=== PATIENT | female | born 1995 | race Two or more races ===

== ENCOUNTER 2020-06-17 14:25 | Outpatient (REF) | payer OTHER, SELFPAY ==
[2020-06-17 15:01] LABS: MANUAL DIFF FLAG NO
[2020-06-17 15:06] LABS: Basophils Absolute Auto 0.1 X10*3/uL (0.0-0.2); Basophils Percent Auto 0.6 % (0-2); Eosinophils Absolute Auto 0.1 X10*3/uL (0.0-0.4); Eosinophils Percent Auto 1.3 % (0-4); Hematocrit 37.7 % (37-47); Hemoglobin 12.1 g/dl (12.0-16.0); Imm Gran Abs Auto 0.02 X10*3/uL (0.00-0.03); Imm Gran Pct Auto 0.2 % (0.0-0.4); Lymphocytes Absolute Auto 2.5 X10*3/uL (1.2-4.9); Lymphocytes Percent Auto 26.2 % (20-40); Mean Corpuscular HGB Conc 32.1 g/dl (31.0-35.0); Mean Corpuscular Hemoglobin 28.5 pg (27.0-33.0); Mean Corpuscular Volume 88.9 fL (80-98); Mean Platelet Volume 9.8 fL (9.4-12.3); Monocytes Absolute Auto 0.7 X10*3/uL (0.1-1.2); Monocytes Percent Auto 7.9 % (2-11); Neutrophils Percent Auto 63.8 % (45-73); Platelet Count 338 X10*3/uL (160-400); Red Blood Count 4.24 X10*6/uL (4.20-5.50); Red Cell Distribution Width 13.2 % (11.0-16.0); White Blood Count 9.4 X10*3/uL (4.8-10.8)
[2020-06-17 15:47] LABS: Alanine Aminotransferase 27 U/L (0-31); Albumin Level 4.5 g/dL (3.5-5.0); Alkaline Phosphatase 85 U/L (39-117); Anion Gap 11 (12-20); Aspartate Amino Transferase 20 U/L (5-31); Bilirubin Total 0.5 mg/dL (0.0-1.0); Blood Urea Nitrogen 10 mg/dL (9-16); Calcium 9.1 mg/dL (8.4-10.2); Carbon Dioxide 27 mmol/L (22-29); Chloride 105 mmol/L (96-108); Cholesterol 156 mg/dL; Estimated Glomerular Filt Rate > 60; Glucose Random 79 mg/dL (60-115); HDL Cholesterol 40 mg/dL; LDL Cholesterol Calculated 105 mg/dl; Potassium 4.1 mmol/l (3.3-5.1); Sodium 139 mmol/L (135-145); Total Protein 7.3 g/dL (6.5-8.0); Triglycerides 55 mg/dL
== END 2020-06-17 14:26 | disposition home or self-care (01) ==
LOC: HO.LAB 14:25
PROVIDERS: PCP Internal Medicine; Visit Provider Internal Medicine
DX: Z00.00 Encounter for general adult medical examination without abnormal findings (principal); K21.9 Gastro-esophageal reflux disease without esophagitis; L70.2 Acne varioliformis
CPT/HCPCS: 36415; 80053; 80061; 85025

== ENCOUNTER 2021-09-30 16:00 | Outpatient (REF) | payer OTHER, SELFPAY ==
[2021-09-30 16:15] LABS: MANUAL DIFF FLAG NO
[2021-09-30 16:56] LABS: Basophils Percent Auto 0.3 % (0-2); Eosinophils Absolute Auto 0.1 X10*3/uL (0.0-0.4); Hemoglobin 11.9 g/dl (12.0-16.0); Imm Gran Abs Auto 0.04 X10*3/uL (0.00-0.03); Imm Gran Pct Auto 0.3 % (0.0-0.4); Lymphocytes Absolute Auto 3.4 X10*3/uL (1.2-4.9); Lymphocytes Percent Auto 28.3 % (20-40); Mean Corpuscular HGB Conc 32.2 g/dl (31.0-35.0); Mean Corpuscular Hemoglobin 28.2 pg (27.0-33.0); Mean Corpuscular Volume 87.7 fL (80.0-98.0); Mean Platelet Volume 10.2 fL (9.4-12.3); Monocytes Absolute Auto 0.8 X10*3/uL (0.1-1.2); Monocytes Percent Auto 6.7 % (2-11); Neutrophils Absolute Auto 7.5 x10*3/uL (2.0-8.3); Neutrophils Percent Auto 63.4 % (45-73); Platelet Count 375 X10*3/uL (160-400); Red Blood Count 4.22 X10*6/uL (4.20-5.50); Red Cell Distribution Width 13.4 % (11.0-16.0); White Blood Count 11.8 X10*3/uL (4.8-10.8)
[2021-09-30 17:24] LABS: Alanine Aminotransferase 28 U/L (0-31); Albumin Level 4.4 g/dL (3.5-5.0); Alkaline Phosphatase 89 U/L (39-117); Anion Gap 12 (12-20); Aspartate Amino Transferase 22 U/L (5-31); Bilirubin Total 0.3 mg/dL (0.0-1.0); Blood Urea Nitrogen 11 mg/dL (9-16); Calcium 9.8 mg/dL (8.4-10.2); Carbon Dioxide 27 mmol/L (22-29); Chloride 104 mmol/L (96-108); Estimated Glomerular Filt Rate > 60; Glucose Random 86 mg/dL (60-115); Sodium 139 mmol/L (135-145); Total Protein 7.5 g/dL (6.5-8.0)
[2021-09-30 17:46] LABS: Thyroid Stimulating Hormone 1.69 uIU/mL (0.32-4.0)
== END 2021-09-30 16:01 | disposition home or self-care (01) ==
LOC: HO.LAB 16:00
PROVIDERS: PCP Internal Medicine; Visit Provider Internal Medicine
DX: L50.8 Other urticaria (principal)
CPT/HCPCS: 36415; 80053; 84443; 85025

== ENCOUNTER 2022-10-16 12:10 | Outpatient (REF) | payer OTHER, SELFPAY ==
[2022-10-16 12:25] LABS: MANUAL DIFF FLAG NO
[2022-10-16 12:50] LABS: Basophils Absolute Auto 0.1 X10*3/uL (0.0-0.2); Basophils Percent Auto 0.8 % (0-2); Eosinophils Absolute Auto 0.3 X10*3/uL (0.0-0.4); Eosinophils Percent Auto 2.7 % (0-4); Hematocrit 39.2 % (37.0-47.0); Hemoglobin 12.8 g/dl (12.0-16.0); Imm Gran Abs Auto 0.02 X10*3/uL (0.00-0.03); Imm Gran Pct Auto 0.2 % (0.0-0.4); Lymphocytes Absolute Auto 3.1 X10*3/uL (1.2-4.9); Lymphocytes Percent Auto 31.9 % (20-40); Mean Corpuscular HGB Conc 32.7 g/dl (31.0-35.0); Mean Corpuscular Hemoglobin 28.2 pg (27.0-33.0); Mean Corpuscular Volume 86.3 fL (80.0-98.0); Monocytes Absolute Auto 0.7 X10*3/uL (0.1-1.2); Neutrophils Absolute Auto 5.5 x10*3/uL (2.0-8.3); Neutrophils Percent Auto 57.4 % (45-73); Platelet Count 345 X10*3/uL (160-400); Red Blood Count 4.54 X10*6/uL (4.20-5.50); Red Cell Distribution Width 13.7 % (11.0-16.0); White Blood Count 9.7 X10*3/uL (4.8-10.8)
[2022-10-16 13:22] LABS: Alanine Aminotransferase 34 U/L (0-31); Albumin Level 4.4 g/dL (3.5-5.0); Alkaline Phosphatase 95 U/L (39-117); Anion Gap 13 (12-20); Aspartate Amino Transferase 21 U/L (5-31); Bilirubin Total 0.6 mg/dL (0.0-1.0); Blood Urea Nitrogen 10 mg/dL (9-16); Calcium 9.4 mg/dL (8.4-10.2); Carbon Dioxide 26 mmol/L (22-29); Chloride 105 mmol/L (96-108); Cholesterol 195 mg/dL; Estimated Glomerular Filt Rate > 60; Glucose Random 77 mg/dL (60-115); HDL Cholesterol 46 mg/dL; LDL Cholesterol Calculated 137 mg/dl; Potassium 4.2 mmol/L (3.3-5.1); Sodium 140 mmol/L (135-145); Total Protein 7.4 g/dL (6.5-8.0); Triglycerides 61 mg/dL
== END 2022-10-16 12:11 | disposition home or self-care (01) ==
LOC: HO.LAB 12:10
PROVIDERS: PCP Internal Medicine; Visit Provider Internal Medicine
DX: J30.89 Other allergic rhinitis (principal); Z86.001 Personal history of in-situ neoplasm of cervix uteri
CPT/HCPCS: 36415; 80053; 80061; 85025

== ENCOUNTER 2024-01-17 07:39 | Outpatient (REF) | payer OTHER, SELFPAY ==
[2024-01-17 11:12] LABS: MANUAL DIFF FLAG NO
[2024-01-17 11:19] LABS: Basophils Absolute Auto 0.1 X10*3/uL (0.0-0.2); Basophils Percent Auto 0.7 % (0-2); Eosinophils Absolute Auto 0.1 X10*3/uL (0.0-0.4); Eosinophils Percent Auto 1.2 % (0-4); Hemoglobin 11.7 g/dl (12.0-16.0); Imm Gran Abs Auto 0.02 X10*3/uL (0.00-0.03); Imm Gran Pct Auto 0.2 % (0.0-0.4); Lymphocytes Absolute Auto 2.7 X10*3/uL (1.2-4.9); Lymphocytes Percent Auto 25.8 % (20-40); Mean Corpuscular HGB Conc 32.5 g/dl (31.0-35.0); Mean Corpuscular Hemoglobin 28.3 pg (27.0-33.0); Mean Platelet Volume 10.2 fL (9.4-12.3); Monocytes Absolute Auto 0.7 X10*3/uL (0.1-1.2); Monocytes Percent Auto 6.9 % (2-11); Neutrophils Absolute Auto 6.9 x10*3/uL (2.0-8.3); Neutrophils Percent Auto 65.2 % (45-73); Platelet Count 353 X10*3/uL (160-400); Red Blood Count 4.14 X10*6/uL (4.20-5.50); Red Cell Distribution Width 14.1 % (11.0-16.0); White Blood Count 10.5 X10*3/uL (4.8-10.8)
[2024-01-17 11:36] LABS: Alanine Aminotransferase 25 U/L (0-31); Albumin Level 4.3 g/dL (3.5-5.0); Alkaline Phosphatase 73 U/L (39-117); Anion Gap 13 (12-20); Aspartate Amino Transferase 17 U/L (5-31); Bilirubin Total 0.4 mg/dL (0.0-1.0); Blood Urea Nitrogen 7 mg/dL (9-16); Calcium 9.3 mg/dL (8.4-10.2); Carbon Dioxide 23 mmol/L (22-29); Chloride 108 mmol/L (96-108); Cholesterol 132 mg/dL (<200); Estimated Glomerular Filt Rate > 60; Glucose Random 82 mg/dL (60-115); HDL Cholesterol 42 mg/dL (>40); LDL Cholesterol Calculated 82 mg/dL (<100); Potassium 3.8 mmol/L (3.3-5.1); Sodium 140 mmol/L (135-145); Total Protein 7.3 g/dL (6.5-8.0); Triglycerides 42 mg/dL (<150)
[2024-01-17 11:47] LABS: HIV AB/AG Nonreactive (Nonreactive); HIV Num 1 0.05 S/CO (0.00-0.99); Syphilis Screen Nonreactive (Nonreactive)
[2024-01-17 13:19] LABS: CT PCR NOT DETECTED (Not Detect.); NG PCR NOT DETECTED (Not Detect.)
== END 2024-01-17 07:40 | disposition home or self-care (01) ==
LOC: HO.10HDL 07:39
PROVIDERS: Visit Provider Internal Medicine
DX: Z00.00 Encounter for general adult medical examination without abnormal findings (principal); E78.00 Pure hypercholesterolemia, unspecified; R74.01 Elevation of levels of liver transaminase levels; Z11.3 Encounter for screening for infections with a predominantly sexual mode of transmission; Z13.31 Encounter for screening for depression
CPT/HCPCS: 0353U; 80053; 80061; 85025; 86780; 87389

== ENCOUNTER 2024-12-25 08:40 | Outpatient (REF) | payer OTHER, SELFPAY ==
--- OUTSIDE RECORDS SUMMARY | 2024-12-25 09:10 | XMS_ITS | Encounter Summary ---
Author Organization [facility] Address [address] [place] [address] Care Team Providers Care Crocheter Hand Name Role Phone Physician, Pcp Unknown Primary Care Provider Susu vailable Encounter Details Date Type Department Care Team (Late st Contact Info) Description 12/20/2024 Lab Requisition [facility] - Main Lab [address] [facility] [place] [address] Lilliana Rose MD [address] [place] [address] [place] [address] Other contact with and (suspected) exposures hazardous to health Social History Tobacco Use Types Packs/Day Years Used Date Smoking Tobacco: Never Assessed Comments Unknown Sex and Gender Information Value Date Recorded Sex Assigned at Not on file Legal Sex Female 11:38 AM EST Gender Identity Not on file Sexual Orientation Not on file documented as of this encounter Plan of Treatment Pending Results Name Type Priority Associated Diagnoses Date /Time Pap smear Pathology and Cytology Routine Other contact with and (suspected) exposures hazardous to health 12/18/2024 12:00 AM EDT documented as of this encounter Procedures Procedure Name Priority Date/Time Associated Diagnosis Comments CHLAMYDIA TRACHOMATIS AND NEISSERIA GONORRHOEAE BY TMA, THINPREP Routine 12/18/2024 12:00 AM EDT Other contact with and (suspected) exposures hazardous to health HPV WITH REFLEX GENOTYPE Routine 12/18/2024 12:00 AM EDT Other contact with and (suspected) exposures hazardous to health TRICHOMONAS VAGINALIS PCR Routine 12/18/2024 12:00 AM EDT Other contact with and (suspected) exposures hazardous to health documented in this encounter Results * HPV with reflex genotype (12/18/2024 12:00 AM EDT) HPV Negative Negative LAB MICROBIOLOGY METHOD 12/21/2024 2:14 PM EDT [facility] Brushing/Spatula Cervix uteri structure / Unknown 12/18/2024 12/20/2024 6:58 AM EDT us Lilliana Rose MD LAB MOLECULAR DIAGNOSTICS ORD ERABLES Final Result Performing Organization Address [facility]/ZIP Co de Phone Number [facility] [address] [place] [address], [place] [phone] * Trichomonas vaginalis molecular study (12/18/2024 12:00 AM EDT) Pathologist [facility] Trichomonas vaginalis Negative Negative LAB MICROBIOLOGY METHOD 12/21/2024 12:28 PM EDT [facility] Brushing/Spatula Cervix uteri structure / Unknown 12/18/2024 12/20/2024 6:58 AM EDT us Lilliana Rose MD LAB BLOOD ORDERABLES Final Re sult Performing Organization Address [facility]/ZIP Co de Phone Number [facility] [address] [place] [address], [place] [phone] * Chlamydia trachomatis and neisseria gonorrhoeae by tma, thinprep (12/18/2024 12:00 AM EDT) N. gonorrhoeae, RNA Probe Negative Negative LAB MICROBIOLOGY METHOD 12/21/2024 12:23 PM EDT [facility] Chlamydia, RNA Probe Negative Negative LAB MICROBIOLOGY METHOD 12/21/2024 12:23 PM EDT [facility] Brushing/Spatula Cervix uteri structure / Unknown 12/18/2024 12/20/2024 6:58 AM EDT us Lilliana Rose MD LAB CYTOLOGY ORDERABLES Final Result [facility] ([facility] [address] [place] [address], documented in this encounter Visit Diagnoses Diagnosis Other contact with and (suspected) exposures hazardous to health documented in this encounter Care Teams Crocheter Hand Relationship Specialty Start Date End Date Physician, Pcp Unknown PCP - General 12/20/24 documented as of this encounter
--- OUTSIDE RECORDS SUMMARY | 2024-12-25 09:10 | XMS_ITS | Clinical Summary ---
Author Organization 299 [facility] Address [address] [place] [address] Phone Care Team Providers Care Fire Coordinator Name Role Phone Physician, Pcp Unknown Primary Care Provider Susu vailable Encounters Date Type Department Care Team Description 12/20/2024 Lab Requisition [facility] - Main Lab [address] [facility] [place] [address] Lilliana Rose MD Other contact with and (suspected) exposures hazardous to health from Last 3 Months Social History Tobacco Use Types Packs/Day Years Used Date Smoking Tobacco: Never Assessed Comments Unknown Sex and Gender Information Value Date Recorded Sex Assigned at Not on file Legal Sex Female 11:38 AM EST Gender Identity Not on file Sexual Orientation Not on file Plan of Treatment Health Maintenance Due Date Last Done Comments DTaP,Tdap,and Td Vaccines (1 - Tdap) 01/10/2016 Hepatitis B Vaccines (1 of 3 - 19+ 3-dose series) 01/10/2016 COVID-19 Vaccine ( - 2023-2 5 season) 2024 Depression Screening 12/20/2024 HIV Screening 12/20/2024 Hepatitis C Screening 12/20/2024 Social Influencers of Health Screening 12/20/2024 Influenza Vaccine (Season Ended) 2025 Cervical Cancer Screening: P ap Smear 12/19/2027 12/18/2024 HIB Vaccines Aged Out No longer eligi ble based on patient's age to complete this topic HPV Vaccines Aged Out No longer eligi ble based on patient's age to complete this topic Hepatitis A Vaccines Aged Out No long er eligible based on patient's age to complete this topic IPV Vaccines Aged Out No longer eligi ble based on patient's age to complete this topic MMR Vaccines Aged Out No longer eligi ble based on patient's age to complete this topic Meningococcal ACWY Vaccine Aged Out N o longer eligible based on patient's age to complete this topic Meningococcal B Vaccine Aged Out No l onger eligible based on patient's age to complete this topic Pneumococcal Vaccine: Pediat rics (0 to 5 Years) and At-Risk Patients (6 to 64 Years) Aged Out No longer eligi ble based on patient's age to complete this topic RSV Immunization Patients Un hamilton 20 months Aged Out No longer eligible b ased on patient's age to complete this topic Varicella Vaccines Aged Out No longer eligible based on patient's age to complete this topic Procedures Procedure Name Priority Date/Time Associated Diagnosis [...] with and (suspected) exposures hazardous to health from Last 3 Months Results * Chlamydia trachomatis and neisseria gonorrhoeae by tma, thinprep (12/18/2024 12:00 AM EDT) N. gonorrhoeae, RNA Probe Negative Negative LAB MICROBIOLOGY METHOD 12/21/2024 12:23 PM EDT [facility] Chlamydia, RNA Probe Negative Negative LAB MICROBIOLOGY METHOD 12/21/2024 12:23 PM EDT [facility] Brushing/Spatula Cervix uteri structure / Unknown 12/18/2024 12/20/2024 6:58 AM EDT us Lilliana Rose MD LAB CYTOLOGY ORDERABLES Final Result [facility] [address] [place] [address], * HPV with reflex genotype (12/18/2024 12:00 AM EDT) HPV Negative Negative LAB MICROBIOLOGY METHOD 12/21/2024 2:14 PM EDT [facility] Brushing/Spatula Cervix uteri structure / Unknown 12/18/2024 12/20/2024 6:58 AM EDT Lilliana Rose MD LAB MOLECULAR DIAGNOSTICS ORD ERABLES Final Result Performing Organization Address City/[facility]/ZIP Co de Phone Number [facility] [address] [place] [address], [place] [phone] * Trichomonas vaginalis molecular study (12/18/2024 12:00 AM EDT) Trichomonas vaginalis Negative Negative LAB MICROBIOLOGY METHOD 12/21/2024 12:28 PM EDT [facility] Brushing/Spatula Cervix uteri structure / Unknown 12/18/2024 12/20/2024 6:58 AM EDT Lilliana Rose MD LAB BLOOD ORDERABLES Final Re sult Performing Organization Address [facility]/ZIP Co de Phone Number [facility] [address] [place] [address], [place] [phone] from Last 3 Months Insurance [employer] Care Teams Fire Coordinator Relationship Specialty Start Date End Date Physician, Pcp Unknown PCP - General 12/20/24
[2024-12-25 11:03] LABS: HIV AB/AG Nonreactive (Nonreactive); HIV Num 1 0.07 S/CO (0.00-0.99)
[2024-12-25 11:05] LABS: Syphilis Screen Nonreactive (Nonreactive)
[2024-12-25 12:07] LABS: CT PCR NOT DETECTED (Not Detect.); NG PCR NOT DETECTED (Not Detect.)
== END 2024-12-25 08:41 | disposition home or self-care (01) ==
LOC: HO.10HDL 08:40
PROVIDERS: Visit Provider Internal Medicine
DX: N97.8 Female infertility of other origin (principal); Z20.2 Contact with and (suspected) exposure to infections with a predominantly sexual mode of transmission; R87.612 Low grade squamous intraepithelial lesion on cytologic smear of cervix (LGSIL); Z00.00 Encounter for general adult medical examination without abnormal findings
CPT/HCPCS: 86780; 87389; 87491; 87591

== ENCOUNTER 2025-03-15 13:19 | Outpatient (AMB) | payer OTHER, SELFPAY ==
--- NOTE | 2025-03-15 13:25 | A.OFFVIS_ITS ---
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 Accompanied by: Self / Same As Patient Allergies No Known Allergies Allergy (Verified 03/15/25 13:29) Is last menstrual period known: Yes Last menstrual period: 01/20/25 (Twice in month of January) Post menopausal: No Patient : No HPI Comments Details: Presenting with a history of of 2 losses the 1st 1 in 2016 had a positive test and by the time the patient had an hCG it was lower in the patient end up with menstrual cycles no evidence of intrauterine by ultrasound or pathology. In 2021 the patient got had an ultrasound documenting intrauterine end up with spontaneous and suction D&C Was the patient did not take longer than a year to get [facility] Social History Household Members: Family Patient : No Current occupational status: employed Current occupation: [employer] Female Reproductive History Menstrual Age of Menarche: 13 Duration of menses: 6-7 days Date of last menstrual period: 01/20/25 (Twice in month of January) control method: none Total pregnancies: 2 Ab spontaneous: 2 History of abnormal pap smear: Yes Review of Systems Const All systems reviewed & are unremarkable except as noted in HPI and below Reports as per HPI and Reports no additional complaints GI Reports no additional complaints Reports no additional complaints Assessment & Plan Assessment & Plan (1) H/O miscarriage, not currently : Code(s): Z87.59 - Personal history of other complications of , childbirth and the puerperium Category: Medical Plan: Discussed with the patient the definition of repetitive loss and the fact that she does not fit that diagnose. In addition discussed with the patient the definition of infertility which is inability to conceive in spite of adequate frequent intercourse for a year, the patient has not had difficulty getting so far. Instructions given the patient to call in case of the inability to get after attempting for 1 year or in case of another miscarriage will initiate a workup. All questions answered the patient verbalized understanding Coding Level of Care Code New Pt Level 3 (82688) Diagnoses H/O miscarriage, not currently Z87.59
--- OUTSIDE RECORDS SUMMARY | 2025-03-15 13:48 | XMS_ITS | Encounter Summary ---
Author Organization [facility] Address [address] [place] [address] Care Team Providers Care Retail Loss Prevention Specialist Name Role Phone Physician, Pcp Unknown Primary Care Provider Susu vailable Encounter Details Date Type Department Care Team (Late st Contact Info) Description 12/20/2024 Lab Requisition [facility] - Main Lab [address] [facility] [place] [address] Lilliana Rose MD [address] [place] [address] [place] [address] Other contact with and (suspected) exposures hazardous to health Social History Tobacco Use Types Packs/Day Years Used Date Smoking Tobacco: Never Assessed Comments Unknown Sex and Gender Information Value Date Recorded Sex Assigned at Not on file Legal Sex Female 11:38 AM EST Gender Identity Not on file Sexual Orientation Not on file documented as of this encounter Plan of Treatment Not on file documented as of this encounter Procedures Procedure [...] with and (suspected) exposures hazardous to health PAP SMEAR Routine 12/18/2024 12:00 AM EDT Other contact with and (suspected) exposures hazardous to health documented in this encounter Results * HPV with reflex genotype (12/18/2024 12:00 AM EDT) HPV Negative Negative LAB MICROBIOLOGY METHOD 12/21/2024 2:14 PM EDT [facility] Brushing/Spatula Cervix uteri structure / Unknown 12/18/2024 12/20/2024 6:58 AM EDT us Lilliana Rose MD LAB MOLECULAR DIAGNOSTICS ORD ERABLES Final Result Performing Organization Address City/[facility]/ZIP Co de Phone Number [facility] [address] [place] [address], [place] [phone] * Trichomonas vaginalis molecular study (12/18/2024 12:00 AM EDT) Pathologist [facility] Trichomonas vaginalis Negative Negative LAB MICROBIOLOGY METHOD 12/21/2024 12:28 PM EDT [facility] Brushing/Spatula Cervix uteri structure / Unknown 12/18/2024 12/20/2024 6:58 AM EDT us Lilliana Rose MD LAB BLOOD ORDERABLES Final Re sult Performing Organization Address [facility]/ZIP Co de Phone Number [facility] [address] [place] [address], [place] [phone] * Chlamydia trachomatis and neisseria gonorrhoeae by tma, thinprep (12/18/2024 12:00 AM EDT) N. gonorrhoeae, RNA Probe Negative Negative LAB MICROBIOLOGY METHOD 12/21/2024 12:23 PM EDT [facility] Chlamydia, RNA Probe Negative Negative LAB MICROBIOLOGY METHOD 12/21/2024 12:23 PM EDT [facility] Brushing/Spatula Cervix uteri structure / Unknown 12/18/2024 12/20/2024 6:58 AM EDT us Lilliana Rose MD LAB CYTOLOGY ORDERABLES Final Result Performing Organization Address City/[facility]/ZIP Co de Phone Number [facility] [address] [place] [address], [place] [phone] * Pap smear (12/18/2024 12:00 AM EDT) Interpretation Negative for intraepithelial lesion or malignancy 12/26/2024 9:27 AM EDT [facility] General Categorization Negative 12/26/2024 9:27 AM EDT [facility] LMP 12/26/2024 9:27 AM EDT [facility] Comment:2 wks Specimen Adequacy Satisfactory for evaluation, endocervical/guillory sformation zone component absent 12/26/2024 9:27 AM EDT [facility] Pap Methodology Liquid Based Pap Test 12/26/2024 9:27 AM EDT [facility] Disclaimer The Pap test is a screening test which carries an inherent false negative rate. These test results should be correlated with the patient's clinical findings and history. This Pap test was processed using an automated screening system. Technical cytopathology services provided by [facility], at [address] [place] [id number] (CLIA # [id number]/Peggy Barahona MD, Event Specialist Food Demonstrator.) 12/26/2024 9:27 AM EDT [facility] Console Pap Interpretation Reported 12/26/2024 9:27 AM EDT [facility] Brushing/Spatula Cervix uteri structure / Unknown 12/18/2024 12/20/2024 6:58 AM EDT us Lilliana Rose MD LAB CYTOLOGY ORDERABLES Final Result Performing Organization Address City/[facility]/ZIP Co de Phone Number [facility] [address] [place] [address], [place] [phone] documented in this encounter Visit Diagnoses Diagnosis Other contact with and (suspected) exposures hazardous to health documented in this encounter Care Teams Retail Loss Prevention Specialist Relationship Specialty Start Date End Date Physician, Pcp Unknown PCP - General 12/20/24 documented as of this encounter
== END 2025-03-15 14:04 | disposition home or self-care (01) ==
LOC: HO.HWS 13:20
PROVIDERS: PCP Internal Medicine; Visit Provider Obstetrics & Gynecology
DX: Z87.59 Personal history of other complications of pregnancy, childbirth and the puerperium (principal)
CPT/HCPCS: 99203

== ENCOUNTER 2025-04-15 14:42 | Emergency (ER) | payer OTHER, SELFPAY ==
[2025-04-15 15:02] VITALS: BP 157/98; PULSE 119; RESP 18; TEMP 36.9; O2SAT 99; BMI 31.3
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
[2025-04-15 15:21] VITALS: BP 157/98; PULSE 119; RESP 18; TEMP 36.9; O2SAT 99
--- NOTE | 2025-04-15 15:21 | PC.NURSE ---
pt discharged from by provider.
== END 2025-04-15 15:22 | disposition home or self-care (01) ==
PROVIDERS: Emergency Provider Emergency Medicine; PCP Internal Medicine
DX: S70.02XA Contusion of left hip, initial encounter (principal); S09.93XA Unspecified injury of face, initial encounter; V43.52XA Car driver injured in collision with other type car in traffic accident, initial encounter; Y93.9 Activity, unspecified; Y92.9 Unspecified place or not applicable; Y99.9 Unspecified external cause status
CPT/HCPCS: 99282